=== PATIENT | male | born 1975 | race Caucasian/White ===

== ENCOUNTER 2017-03-13 14:36 | Inpatient (IN) | payer SELFPAY ==
[~2017-03-13] VITALS: Ht 188 cm; Wt 91.6 kg
[2017-03-13] VITALS (8 sets, daily range): BP systolic 109–178; BP diastolic 64–103
[2017-03-13] MEDS ORDERED: IV NORMAL SALINE 1000ML BAG 1,000 ML IV SCH (15:00)
[2017-03-13] MEDS ORDERED: IPRATRPIUM/ALBUTEROL 0.5/2.5MG 3 ML NEBU. NEB ONE ×3 (15:00→16:00)
[2017-03-13] MEDS ORDERED: 0.9 % SODIUM CHLORIDE 10 ML DISP.SYRIN. IV ONE (15:00)
[2017-03-13] MEDS ORDERED: methylPREDNISolone SOD SUCC PF 125 MG/2 ML VIAL. IV ONE (15:00)
[2017-03-13 15:04] LABS: BASO # 0.1 x10^3/uL (0.0-0.2); BASO % 1 % (0-3); EOS % 5 % (0-3); HEMATOCRIT 50.2 % (39.0-53.0); HEMOGLOBIN 17.3 g/dL (13.0-17.5); LYMPH # 2.6 x10^3/uL (1.0-4.8); LYMPH % 16 % (24-48); MEAN CORPUSCULAR HEMOGLOBIN 32 pg (25-35); MEAN CORPUSCULAR HGB CONC 35 g/dL (31-37); MEAN CORPUSCULAR VOLUME 92 fL (79-100); MONO % 7 % (0-9); NEUT % 71 % (31-73); PLATELET COUNT 268 x10^3/uL (140-400); RED BLOOD COUNT 5.45 x10^6/uL (4.30-5.70); RED CELL DISTRIBUTION WIDTH 12.7 % (11.5-14.5); WHITE BLOOD COUNT 15.8 x10^3/uL (4.0-11.0)
--- NOTE | 2017-03-13 15:05 | PHYS DOC ---
Past Medical History Past Medical History: Asthma Past Surgical History: Tonsillectomy Smoking: Cigarettes, Quit Less Than 1 Year Additional Information: STATES HE QUIT 2 WEEKS AGO Alcohol Use: Occasionally Drug Use: None Adult General Chief Complaint Chief Complaint: SHORTNESS OF BREATH HPI HPI Patient is a pleasant 41-year-old male with a history of asthma who presents with a three-day asthma attack that has not been responding to his nebulizers orders MDIs at home. He is a smoker quit 2 weeks ago who complains of progressive shortness of breath and wheezing despite his metered-dose down. He denies fevers, chills, productive cough. He denies chest pain but his feels that he cannot catch his breath. Patient denies recent trauma, travel outside the country, recent swelling or pain in his lower legs, denies rash, denies congestion or other problems. Patient has never been intubated. He's not had any recent ER visits and he denies any recent steroid exposure. Review of Systems Review of Systems Constitutional: Denies fever or chills [] Eyes: Denies change in visual acuity, redness, or eye pain [] HENT: Denies nasal congestion or sore throat [] Respiratory: He has had a significant cough with shortness of breath and wheezing. Cardiovascular: No additional information not addressed in HPI [] GI: Denies abdominal pain, nausea, vomiting, bloody stools or diarrhea [] : Denies dysuria or hematuria [] Musculoskeletal: Denies back pain or joint pain [] Integument: Denies rash or skin lesions [] Neurologic: Denies headache, focal weakness or sensory changes [] Endocrine: Denies polyuria or polydipsia [] Current Medications Current Medications Current Medications Medications (Trade) Dose Ordered Sig/Tim Start Time Stop Time Status Last Admin Dose Admin Albuterol/ Ipratropium (Duoneb) 3 ml 1X ONCE 03/13/17 16:00 03/13/17 16:01 DC 03/13/17 16:18 3 ML Magnesium Sulfate/ Dextrose 50 ml @ 25 mls/hr 1X ONCE 03/13/17 16:15 03/13/17 18:14 03/13/17 16:13 25 MLS/HR Methylprednisolone Sodium Succinate (SOLU-Medrol 125MG VIAL) 125 mg 1X ONCE 03/13/17 15:00 03/13/17 15:01 DC 03/13/17 15:05 125 MG Sodium Chloride 1,000 ml @ 1,000 mls/hr Q1H 03/13/17 15:00 03/13/17 15:59 DC 03/13/17 15:05 1,000 MLS/HR Sodium Chloride (Normal Saline Flush) 10 ml 1X ONCE 03/13/17 15:00 03/13/17 15:01 DC 03/13/17 16:13 10 ML Allergies Allergies Allergies Coded Allergies Type Severity Reaction Last Updated Verified codeine Allergy Intermediate 03/13/17 Yes Physical Exam Physical Exam Constitutional: Well developed, well nourished, patient is in somewhat distress he is diaphoretic he is retracting when he speaking in 6-8 word sentences. HENT: Normocephalic, atraumatic, bilateral external ears normal, oropharynx moist, no oral exudates, nose normal. [] Eyes: PERRLA, EOMI, conjunctiva normal, no discharge. [] Neck: Normal range of motion, no tenderness, supple, no stridor. [] Cardiovascular: He is tachycardic with a 96% on room on 2 L nasal cannula was] Lungs & Thorax: He denies significant wheezing in all lung bean significant intercostal retractions. He has got some prolonged exhalation as well. Skin: Warm, dry, no erythema, no rash. [] Back: No tenderness, no CVA tenderness. [] Extremities: No tenderness, no cyanosis, no clubbing, ROM intact, no edema. [] Neurologic: Alert and oriented X 3, normal motor function, normal sensory function, no focal deficits noted. [] Psychologic: Affect normal, judgement normal, mood normal. [] Current Patient Data Vital Signs Vital Signs Date Time Temp Pulse Resp B/P (MAP) Pulse Ox O2 Delivery O2 Flow Rate FiO2 03/13/17 16:19 95 Nasal Cannula 4.0 03/13/17 14:36 98.7 105 28 178/125 (142) 98.7 Lab Values Laboratory Tests Test 03/13/17 14:42 White Blood Count 15.8 x10^3/uL (4.0-11.0) H Red Blood Count 5.45 x10^6/uL (4.30-5.70) Hemoglobin 17.3 g/dL (13.0-17.5) Hematocrit 50.2 % (39.0-53.0) Mean Corpuscular Volume 92 fL (79-100) Mean Corpuscular Hemoglobin 32 pg (25-35) Mean Corpuscular Hemoglobin Concent 35 g/dL (31-37) Red Cell Distribution Width 12.7 % (11.5-14.5) Platelet Count 268 x10^3/uL (140-400) Neutrophils (%) (Auto) 71 % (31-73) Lymphocytes (%) (Auto) 16 % (24-48) L Monocytes (%) (Auto) 7 % (0-9) Eosinophils (%) (Auto) 5 % (0-3) H Basophils (%) (Auto) 1 % (0-3) Neutrophils # (Auto) 11.2 x10^3uL (1.8-7.7) H Lymphocytes # (Auto) 2.6 x10^3/uL (1.0-4.8) Monocytes # (Auto) 1.1 x10^3/uL (0.0-1.1) Eosinophils # (Auto) 0.8 x10^3/uL (0.0-0.7) H Basophils # (Auto) 0.1 x10^3/uL (0.0-0.2) Sodium Level 141 mmol/L (136-145) Potassium Level 4.4 mmol/L (3.5-5.1) Chloride Level 102 mmol/L (98-107) Carbon Dioxide Level 25 mmol/L (21-32) Anion Gap 14 (6-14) Blood Urea Nitrogen 10 mg/dL (8-26) Creatinine 0.9 mg/dL (0.7-1.3) Estimated GFR (Cockcroft-Gault) 92.1 BUN/Creatinine Ratio 11 (6-20) Glucose Level 125 mg/dL (70-99) H Calcium Level 10.3 mg/dL (8.5-10.1) H Total Bilirubin 0.7 mg/dL (0.2-1.0) Aspartate Amino Transferase (AST) 25 U/L (15-37) Alanine Aminotransferase (ALT) 55 U/L (16-63) Alkaline Phosphatase 74 U/L (46-116) Creatine Kinase 144 U/L (39-308) Creatine Kinase MB (Mass) 1.8 ng/mL (0.0-3.6) Creatine Kinase MB Relative Index 1.3 % (0-4) Troponin I Quantitative < 0.017 ng/mL (0.000-0.055) VZ-Fhq-W-Type Natriuretic Peptide 17 pg/mL (0-124) Total Protein 8.3 g/dL (6.4-8.2) H Albumin 4.8 g/dL (3.4-5.0) Albumin/Globulin Ratio 1.4 (1.0-1.7) Laboratory Tests 03/13/17 14:42 Laboratory Tests 03/13/17 14:42 EKG EKG [] Radiology/Procedures Radiology/Procedures [] [facility] [address] [place], [place] [id number] IMAGING REPORT Signed PATIENT: ELEUTERIO GALAVIZ ACCOUNT: [id number] : 1975 LOCATION: ER AGE: 41 SEX: M EXAM STATUS: PRE ER ORD. PHYSICIAN: RADHA WHITE MD REASON: sob PROCEDURE: PORTABLE CHEST 1V INDICATION: sob COMPARISON: None. FINDINGS: Single view of chest obtained. 7 mm probable calcified nodule in the left midlung. No definite focal airspace consolidation or edema. Cardiac silhouette is not enlarged. IMPRESSION: No definite focal airspace consolidation. Probable calcified nodule in the left lung. If the patient has risk factors for malignancy it may be helpful to obtain a follow-up chest CT on a nonemergent basis to ensure that there is not any noncalcified more worrisome solid component. DICTATED and SIGNED BY: SUBHA YATES MD DATE: 03/13/17 1501 CC: RADHA WHITE MD ~ Course & Med Decision Making Course & Med Decision Making Pertinent Labs and Imaging studies reviewed. (See chart for details) patient noted to be working and extreme amount of stress given a neb treatment in route by EMS that he states made him feel better. During the history is obvious he was in some respiratory distress given the fact he was only speaking in 6-8 word sentences. There are obvious retractions and wheezes in all his lung bean. Patient was immediately prescribed 3 more continuous DuoNeb's Solu- Medrol and oxygen. Optimize his oxygenation and slow to open up his lungs. Chest x-ray will be completed as well as EKG IV fluids will be given and a base and some last be completed. Time is now 3:03 PM patient's still wheezing with prolonged exhalation. Has had 2 neb treatments at this time Time is now 3:45 PM patient has had 3 duo nebs, Solu-Medrol and is still oxygen dependent and wheezing diffusely in all lung bean. The retractions have decreased significantly and his work of breathing and diaphoresis of stopped. I was now 4: 10 PM patient will be admitted to the hospital for continued asthma exacerbation. The maximize therapy and obtaining the patient 2 g of mag as well IV slow push over 15 minutes. Patient be admitted to the unit for continued observation under very close scrutiny. [employer] Consultant note: Internal medicine. [employer] Consultant called at of the service 4:10 PM Consult called back at 4:10 pm Discussed the case I presented and they agreed with admission. Time of acceptance 4:10 PM [] I spent approximately 45-50 minutes working and engaged directly in the patient care providing critical care evaluation this includes but not limited to time spent engaged in work directly related to the individual patients care. I spent time at the bedside, reviewing test results, discussing the case with staff, documenting the medical record and time spent with EMS discussing specific treatment issues when the patient presented and during his evaluation. Adelina Disclaimer Adelina Disclaimer This electronic medical record was generated, in whole or in part, using a voice recognition dictation system. Departure Departure Impression: Primary Impression: Asthma exacerbation Disposition: ADMITTED INPATIENT Admitting Physician: Helene Butler Condition: GUARDED RADHA WHITE MD Mar 13, 2017 15:05
--- NOTE | 2017-03-13 15:09 | RAD ---
INDICATION: sob COMPARISON: None. FINDINGS: Single view of chest obtained. 7 mm probable calcified nodule in the left midlung. No definite focal airspace consolidation or edema. Cardiac silhouette is not enlarged. IMPRESSION: No definite focal airspace consolidation. Probable calcified nodule in the left lung. If the patient has risk factors for malignancy it may be helpful to obtain a follow-up chest CT on a nonemergent basis to ensure that there is not any noncalcified more worrisome solid component.
[2017-03-13 15:15] LABS: CALCIUM 10.3 mg/dL (8.5-10.1); CREATININE 0.9 mg/dL (0.7-1.3); GFR 92.1; POTASSIUM 4.4 mmol/L (3.5-5.1)
[2017-03-13 15:21] LABS: ALBUMIN 4.8 g/dL (3.4-5.0); ALBUMIN/GLOBULIN RATIO 1.4 (1.0-1.7); TOTAL BILIRUBIN 0.7 mg/dL (0.2-1.0); TOTAL PROTEIN 8.3 g/dL (6.4-8.2)
[2017-03-13 15:29] LABS: CKMB MASS 1.8 ng/mL (0.0-3.6)
[2017-03-13] MEDS ORDERED: MAGNESIUM SULFATE 2GM 50 ML IV ONE (16:15)
--- NOTE | 2017-03-13 16:19 | EKG ---
[facility] [address] [place] [address] Test Date: 2017-03-13 Test Time: 14:43:06 Pat Name: ELEUTERIO GALAVIZ Department: Room: Gender: Retail Merchandising Manager: : 1975 Requested By: RADHA WHITE Order Number: [id number] Reading MD: Measurements Intervals [place] Rate: 113 P: 90 MD: 118 QRS: 68 QRSD: 94 T: 24 QT: 304 QTc: 422 Interpretive Statements SINUS TACHYCARDIA OTHERWISE NORMAL ECG RI6.01 No previous ECG available for comparison
[2017-03-13] MEDS ORDERED: DOCUSATE SODIUM 100 MG CAPSULE. PO PRN (17:30)
[2017-03-13] MEDS ORDERED: ACETAMINOPHEN 325 MG TABLET. PO PRN (17:30)
[2017-03-13] MEDS ORDERED: MORPHINE SULFATE 2 MG/ML DISP.SYRIN. IV PRN ×2 (17:30)
[2017-03-13] MEDS ORDERED: ALBUTEROL SULFATE 2.5 MG/3 ML NEBU. NEB PRN (17:30)
[2017-03-13] MEDS ORDERED: hydrALAZINE 20 MG/ML VIAL. IVP PRN (17:30)
[2017-03-13] MEDS ORDERED: ONDANSETRON PF 4 MG/2 ML VIAL. IV PRN (17:30)
[2017-03-13] MEDS ORDERED: traMADol 50 MG TABLET PO PRN ×2 (17:30)
--- NOTE | 2017-03-13 17:37 | PDOC1 ---
History and Physical Date of Admission Date of Admission 03/13/17 Identification/Chief Complaint Chief Complaint sob Problems: Source Source: Chart review, Patient History of Present Illness History of Present Illness HPI HPI Patient is a pleasant 41-year-old male with a history of self diagnosed asthma on albuterol many times a week, comes for sob. He was a heavy smoker, 1-1.5 PPD, started to have non productive cough since 02/26 and since then quit smoking. Denies fever, chills, chest pain. He has NO pcp, NEVER really diagnosed with asthma or copd, but felt so and takes albuterol himself. He feels sob worse for the past 3 days. he dasats in ER to 88% on RA, now on NC 4L, got some nebs and steroid in ER, still sob and severe wheezing. Patient denies recent trauma, travel outside the country, recent swelling or pain in his lower legs, denies rash, denies congestion or other problems. Patient has never been intubated. He's not had any recent ER visits and he denies any recent steroid exposure. Past Medical History Past Medical History none Past Surgical History Past Surgical History: Tonsillectomy Family History Family History: Hypertension Social History Smoke: Quit ALCOHOL: social Drugs: None Current Problem List Problem List Problems Medical Problems: (1) Asthma exacerbation Status: Acute Current Medications Current Medications Current Medications Medications (Trade) Dose Ordered Sig/Tim Start Time Stop Time Status Last Admin Dose Admin Acetaminophen (Tylenol) 650 mg PRN Q6HRS PRN 03/13/17 17:30 Albuterol Sulfate (Ventolin Neb Soln) 2.5 mg PRN Q2HR PRN 03/13/17 17:30 Albuterol/ Ipratropium (Duoneb) 3 ml RTQID 03/13/17 20:00 Docusate Sodium (Colace) 100 mg PRN DAILY PRN 03/13/17 17:30 Guaifenesin (Mucinex) 600 mg BID 03/13/17 21:00 Hydralazine HCl (Apresoline) 10 mg PRN Q4HRS PRN 03/13/17 17:30 Magnesium Sulfate/ Dextrose 50 ml @ 25 mls/hr 1X ONCE 03/13/17 16:15 03/13/17 18:14 03/13/17 16:13 25 MLS/HR Methylprednisolone Sodium Succinate (SOLU-Medrol 125MG VIAL) 125 mg 1X ONCE 03/13/17 15:00 03/13/17 15:01 DC 03/13/17 15:05 125 MG Morphine Sulfate 2 mg PRN Q2HR PRN 03/13/17 17:30 Ondansetron HCl (Zofran) 4 mg PRN Q6HRS PRN 03/13/17 17:30 Sodium Chloride 1,000 ml @ 1,000 mls/hr Q1H 03/13/17 15:00 03/13/17 15:59 DC 03/13/17 15:05 1,000 MLS/HR Sodium Chloride (Normal Saline Flush) 10 ml 1X ONCE 03/13/17 15:00 03/13/17 15:01 DC 03/13/17 16:13 10 ML Tramadol HCl (Ultram) 50 mg PRN Q6HRS PRN 03/13/17 17:30 Allergies Allergies Allergies Coded Allergies Type Severity Reaction Last Updated Verified codeine Allergy Intermediate 03/13/17 Yes ROS Review of System CONSTITUTIONAL: No fever or chills EYES: No recent changes SKIN: No rash or itching CARDIOVASCULAR: No chest pain, syncope, palpitations, or edema RESPIRATORY: No SOB or cough GASTROINTESTINAL: No nausea, vomiting or abdominal pain NEUROLOGICAL: No headaches or weakness ENDOCRINE: No cold or heat intolerance GENITOURINARY: No urgency or frequency of urination MUSCULOSKELETAL: No back pain or joint pain LYMPHATICS: No enlarged lymph nodes PSYCHIATRIC: No anxiety or depression Physical Exam Physical Exam GEN.: No apparent distress. Alert and oriented. HEENT: Head is normocephalic, atraumatic NECK: Supple. LUNGS: bl severe wheezing HEART: RRR, S1, S2 present. Peripheral pulses intact ABDOMEN: Soft, nontender. Positive bowel sounds. EXTREMITIES: Without any cyanosis. NEUROLOGIC: Normal speech, normal tone PSYCHIATRIC: Normal affect, normal mood. SKIN: No ulcerations Vitals Vitals Vital Signs Date Time Temp Pulse Resp B/P (MAP) Pulse Ox O2 Delivery O2 Flow Rate FiO2 03/13/17 16:19 95 Nasal Cannula 4.0 03/13/17 14:36 98.7 105 28 178/125 (142) 98.7 Labs Labs Laboratory Tests Test 03/13/17 14:42 White Blood Count 15.8 x10^3/uL (4.0-11.0) Red Blood Count 5.45 x10^6/uL (4.30-5.70) Hemoglobin 17.3 g/dL (13.0-17.5) Hematocrit 50.2 % (39.0-53.0) Mean Corpuscular Volume 92 fL (79-100) Mean Corpuscular Hemoglobin 32 pg (25-35) Mean Corpuscular Hemoglobin Concent 35 g/dL (31-37) Red Cell Distribution Width 12.7 % (11.5-14.5) Platelet Count 268 x10^3/uL (140-400) Neutrophils (%) (Auto) 71 % (31-73) Lymphocytes (%) (Auto) 16 % (24-48) Monocytes (%) (Auto) 7 % (0-9) Eosinophils (%) (Auto) 5 % (0-3) Basophils (%) (Auto) 1 % (0-3) Neutrophils # (Auto) 11.2 x10^3uL (1.8-7.7) Lymphocytes # (Auto) 2.6 x10^3/uL (1.0-4.8) Monocytes # (Auto) 1.1 x10^3/uL (0.0-1.1) Eosinophils # (Auto) 0.8 x10^3/uL (0.0-0.7) Basophils # (Auto) 0.1 x10^3/uL (0.0-0.2) Sodium Level 141 mmol/L (136-145) Potassium Level 4.4 mmol/L (3.5-5.1) Chloride Level 102 mmol/L (98-107) Carbon Dioxide Level 25 mmol/L (21-32) Anion Gap 14 (6-14) Blood Urea Nitrogen 10 mg/dL (8-26) Creatinine 0.9 mg/dL (0.7-1.3) Estimated GFR (Cockcroft-Gault) 92.1 BUN/Creatinine Ratio 11 (6-20) Glucose Level 125 mg/dL (70-99) Calcium Level 10.3 mg/dL (8.5-10.1) Total Bilirubin 0.7 mg/dL (0.2-1.0) Aspartate Amino Transf (AST/SGOT) 25 U/L (15-37) Alanine Aminotransferase (ALT/SGPT) 55 U/L (16-63) Alkaline Phosphatase 74 U/L (46-116) Creatine Kinase 144 U/L (39-308) Creatine Kinase MB (Mass) 1.8 ng/mL (0.0-3.6) Creatine Kinase MB Relative Index 1.3 % (0-4) Troponin I Quantitative < 0.017 ng/mL (0.000-0.055) WM-Gtq-N-Type Natriuretic Peptide 17 pg/mL (0-124) Total Protein 8.3 g/dL (6.4-8.2) Albumin 4.8 g/dL (3.4-5.0) Albumin/Globulin Ratio 1.4 (1.0-1.7) Laboratory Tests Test 03/13/17 14:42 White Blood Count 15.8 x10^3/uL (4.0-11.0) Red Blood Count 5.45 x10^6/uL (4.30-5.70) Hemoglobin 17.3 g/dL (13.0-17.5) Hematocrit 50.2 % (39.0-53.0) Mean Corpuscular Volume 92 fL (79-100) Mean Corpuscular Hemoglobin 32 pg (25-35) Mean Corpuscular Hemoglobin Concent 35 g/dL (31-37) Red Cell Distribution Width 12.7 % (11.5-14.5) Platelet Count 268 x10^3/uL (140-400) Neutrophils (%) (Auto) 71 % (31-73) Lymphocytes (%) (Auto) 16 % (24-48) Monocytes (%) (Auto) 7 % (0-9) Eosinophils (%) (Auto) 5 % (0-3) Basophils (%) (Auto) 1 % (0-3) Neutrophils # (Auto) 11.2 x10^3uL (1.8-7.7) Lymphocytes # (Auto) 2.6 x10^3/uL (1.0-4.8) Monocytes # (Auto) 1.1 x10^3/uL (0.0-1.1) Eosinophils # (Auto) 0.8 x10^3/uL (0.0-0.7) Basophils # (Auto) 0.1 x10^3/uL (0.0-0.2) Sodium Level 141 mmol/L (136-145) Potassium Level 4.4 mmol/L (3.5-5.1) Chloride Level 102 mmol/L (98-107) Carbon Dioxide Level 25 mmol/L (21-32) Anion Gap 14 (6-14) Blood Urea Nitrogen 10 mg/dL (8-26) Creatinine 0.9 mg/dL (0.7-1.3) Estimated GFR (Cockcroft-Gault) 92.1 BUN/Creatinine Ratio 11 (6-20) Glucose Level 125 mg/dL (70-99) Calcium Level 10.3 mg/dL (8.5-10.1) Total Bilirubin 0.7 mg/dL (0.2-1.0) Aspartate Amino Transf (AST/SGOT) 25 U/L (15-37) Alanine Aminotransferase (ALT/SGPT) 55 U/L (16-63) Alkaline Phosphatase 74 U/L (46-116) Creatine Kinase 144 U/L (39-308) Creatine Kinase MB (Mass) 1.8 ng/mL (0.0-3.6) Creatine Kinase MB Relative Index 1.3 % (0-4) Troponin I Quantitative < 0.017 ng/mL (0.000-0.055) CF-Nqk-T-Type Natriuretic Peptide 17 pg/mL (0-124) Total Protein 8.3 g/dL (6.4-8.2) Albumin 4.8 g/dL (3.4-5.0) Albumin/Globulin Ratio 1.4 (1.0-1.7) VTE Prophylaxis Ordered VTE Prophylaxis Devices: Yes VTE Pharmacological Prophylaxi: Yes Assessment/Plan Assessment/Plan acute resp failure asthma or COPD exacerbation bronchitis previous smoker, heavy, just quit [id number] plan: pulm consult cough meds doxy duoneb albuterol prn dvt, gi ppx check ABG stat told pt if feels tired , must let us know, hope no intubation needed. ALEKSANDR CANELA MD Mar 13, 2017 17:37
[2017-03-13 17:42] LABS: HCO3 ABG 22 mmol/L (21-28); PCO2 ABG 40 mmHg (35-46); PH ABG 7.35 (7.35-7.45); PO2 ABG 69 mmHg (75-108); SAT O2 ABG 93 % (92-99)
[2017-03-13] MEDS: DOXYCYCLINE HYCLATE 100 MG TABLET PO SCH (18:26)
[2017-03-13] MEDS ORDERED: ALBU1.25 NEB (18:51)
[2017-03-13] MEDS ORDERED: VENTOLIN HFA18 GM INH (18:51)
[2017-03-13] MEDS ORDERED: fentaNYL PF VIAL 100 MCG/2 ML VIAL IV PRN (19:45)
[2017-03-13 20:09] LABS: BILIRUBIN,URINE NEGATIVE (NEG); GLUCOSE,URINE NEGATIVE (NEG); NITRITE,URINE NEGATIVE (NEG); PH,URINE 5.5; PROTEIN,URINE NEGATIVE (NEG-TRACE); UROBILINOGEN,URINE 0.2 mg/dL (0.2 mg/dL)
[2017-03-13 20:20] LABS: BACTERIA,URINE FEW /HPF (0-FEW); RBC,URINE 0 /HPF (0-2); SQUAMOUS EPITHELIAL CELL,UR OCC /LPF; WBC,URINE OCC /HPF (0-4)
[2017-03-13] MEDS: IPRATRPIUM/ALBUTEROL 0.5/2.5MG 3 ML NEBU. NEB SCH (20:21)
[2017-03-13] MEDS ORDERED: FAMOTIDINE 20 MG TABLET. PO SCH (21:00)
[2017-03-13] MEDS ORDERED: ENOXAPARIN 40 MG/0.4 ML SYRINGE. SQ SCH (21:00)
[2017-03-13] MEDS: methylPREDNISolone SOD SUCC PF 40 MG/ML VIAL. IV SCH (21:12)
[2017-03-13] MEDS ORDERED: ALPRAZolam 0.25 MG TABLET PO ONE (22:30)
--- NOTE | 2017-03-14 03:40 | ACF ---
Admission Forms Criteria ASTHMA Clinical Indications for Admission to Inpatient Care (Place 'X' for any and all applicable criteria): Admission is indicated for ANY ONE of the following (1)(2)(3)(4)(5): [ ]I. Absent or markedly diminished breath sounds (silent chest) [ ]II. Oxygen saturation < 92% [ ]III. PaCO2 = / > 42 mm Hg (5.6 kPa) [ ]IV. Peak expiratory flow rate < 40% of predicted or personal best after treatment. [ ]V. Peak expiratory flow rate < 33% of predicted or personal before after treatment [ ]. Change in mental status [ ]VII. Ventilatory support required [ ]VIII. PaO2 < 60 mm Hg (8.0 kPa) [ ]IX. Cyanosis [ ]X. Cardiac dysrhythmia (e.g., bradycardia) [ ]XI. Hemodynamic instability [ ]XII. Radiographic evidence of complication requiring inpatient treatment (e.g., pneumonia, pneumothorax) [X]XIII. Inpatient admission required rather than observation care (also use Asthma: Observation Care guideline as appropriate) because of ANY ONE of the following: [ ]a) Respiratory finding that is severe or persistent (eg, dyspnea, tachypnea, accessory muscle use) [ ]b) Airflow measurements less than 60% of predicted or personal best that persist (e.g., over 24 hours) or worsen despite treatments [X]c) Supplemental oxygen or respiratory treatments for over 24 hours that are performable only in acute inpatient setting [ ]d) Other condition, treatment or monitoring requiring inpatient admission. Extended stay beyond goal length of stay may be needed for (26)(27)(28): [ ]a) Severe respiratory failure (23) (29) (30) [ ]b) Secondary causes and complications (25) [ ]c) Status asthmaticus [ ]d) Chronic obstructive asthma [ ]e) Older patients (29) [ ]f) Slow resolution [ ]g) Clinically significant exacerbation of comorbidities (eg, jag. heart failure, atrial fibrillation) The original [employer] content created by [employer] has been revised. The portions of the content which have been revised are identified through the use of italic text or in bold, and [employer] includes the [facility] [employer] has neither reviewed nor approved the modified material. All other unmodified content is copyright [employer] includes the [facility] Please see references footnoted in the original [facility] edition 2016 Admission Criteria Met?: Yes ROBERTO GRACIA Mar 14, 2017 03:40
[2017-03-14 03:45] VITALS: BP 105/58
[2017-03-14 05:44] LABS: BASO % 0 % (0-3); EOS % 0 % (0-3); HEMATOCRIT 48.8 % (39.0-53.0); HEMOGLOBIN 16.4 g/dL (13.0-17.5); LYMPH # 0.9 x10^3/uL (1.0-4.8); LYMPH % 8 % (24-48); MEAN CORPUSCULAR HEMOGLOBIN 31 pg (25-35); MEAN CORPUSCULAR HGB CONC 34 g/dL (31-37); MEAN CORPUSCULAR VOLUME 93 fL (79-100); MONO % 2 % (0-9); NEUT % 90 % (31-73); PLATELET COUNT 234 x10^3/uL (140-400); RED BLOOD COUNT 5.26 x10^6/uL (4.30-5.70); RED CELL DISTRIBUTION WIDTH 12.9 % (11.5-14.5); WHITE BLOOD COUNT 11.1 x10^3/uL (4.0-11.0)
[2017-03-14 06:02] LABS: CREATININE 0.8 mg/dL (0.7-1.3); GFR 105.5; POTASSIUM 3.8 mmol/L (3.5-5.1)
[2017-03-14 06:59] LABS: PLT ESTIMATE ADEQUATE (ADEQUATE)
[2017-03-14 08:00] VITALS: BP 140/80
[2017-03-14] MEDS: IPRATRPIUM/ALBUTEROL 0.5/2.5MG 3 ML NEBU. NEB SCH ×3 (08:16→18:01)
[2017-03-14] MEDS: DOXYCYCLINE HYCLATE 100 MG TABLET PO SCH (10:10)
[2017-03-14] MEDS: methylPREDNISolone SOD SUCC PF 40 MG/ML VIAL. IV SCH ×2 (10:11→15:19)
[2017-03-14 11:21] VITALS: BP 157/83
--- NOTE | 2017-03-14 13:09 | PDOC ---
PROGRESS NOTES Chief Complaint Chief Complaint Chief complaint: Shortness of breath Assessment and plan Acute respiratory failure hypoxic present on admission Possible reactive airway disease, questionable asthma ,never been diagnosed officially Possible bronchitis Former smoker quit smoking 2 weeks ago Plan Continue current bronchodilators, continue IV Solu-Medrol Continue doxycycline Smoking cessation addressed patient is encouraged Labs reviewed No old records available Pulmonology consultation pending Need outpatient the follow-up with the pulmonology. Supportive care Discharge plan based on patient's clinical improvement. History of Present Illness History of Present Illness No fever, no chills, no chest pain, and no breathing difficulties, Patient is seen in critical care unit Feeling better Vitals Vitals Vital Signs Date Time Temp Pulse Resp B/P (MAP) Pulse Ox O2 Delivery O2 Flow Rate FiO2 03/14/17 11:43 96 Nasal Cannula 2.0 03/14/17 11:21 97.9 101 18 157/83 (107) 97.9 Physical Exam General: Alert, Oriented X3 Heart: Normal S1, Normal S2 Lungs: Wheezing Abdomen: Normal bowel sounds Extremities: No clubbing Skin: No rashes Labs LABS Laboratory Tests Test 03/13/17 14:42 03/13/17 17:19 03/13/17 19:24 03/14/17 05:20 White Blood Count 15.8 x10^3/uL (4.0-11.0) 11.1 x10^3/uL (4.0-11.0) Red Blood Count 5.45 x10^6/uL (4.30-5.70) 5.26 x10^6/uL (4.30-5.70) Hemoglobin 17.3 g/dL (13.0-17.5) 16.4 g/dL (13.0-17.5) Hematocrit 50.2 % (39.0-53.0) 48.8 % (39.0-53.0) Mean Corpuscular Volume 92 fL (79-100) 93 fL (79-100) Mean Corpuscular Hemoglobin 32 pg (25-35) 31 pg (25-35) Mean Corpuscular Hemoglobin Concent 35 g/dL (31-37) 34 g/dL (31-37) Red Cell Distribution Width 12.7 % (11.5-14.5) 12.9 % (11.5-14.5) Platelet Count 268 x10^3/uL (140-400) 234 x10^3/uL (140-400) Neutrophils (%) (Auto) 71 % (31-73) 90 % (31-73) Lymphocytes (%) (Auto) 16 % (24-48) 8 % (24-48) Monocytes (%) (Auto) 7 % (0-9) 2 % (0-9) Eosinophils (%) (Auto) 5 % (0-3) 0 % (0-3) Basophils (%) (Auto) 1 % (0-3) 0 % (0-3) Neutrophils # (Auto) 11.2 x10^3uL (1.8-7.7) 9.9 x10^3uL (1.8-7.7) Lymphocytes # (Auto) 2.6 x10^3/uL (1.0-4.8) 0.9 x10^3/uL (1.0-4.8) Monocytes # (Auto) 1.1 x10^3/uL (0.0-1.1) 0.2 x10^3/uL (0.0-1.1) Eosinophils # (Auto) 0.8 x10^3/uL (0.0-0.7) 0.0 x10^3/uL (0.0-0.7) Basophils # (Auto) 0.1 x10^3/uL (0.0-0.2) 0.0 x10^3/uL (0.0-0.2) Sodium Level 141 mmol/L (136-145) 139 mmol/L (136-145) Potassium Level 4.4 mmol/L (3.5-5.1) 3.8 mmol/L (3.5-5.1) Chloride Level 102 mmol/L (98-107) 103 mmol/L (98-107) Carbon Dioxide Level 25 mmol/L (21-32) 23 mmol/L (21-32) Anion Gap 14 (6-14) 13 (6-14) Blood Urea Nitrogen 10 mg/dL (8-26) 10 mg/dL (8-26) Creatinine 0.9 mg/dL (0.7-1.3) 0.8 mg/dL (0.7-1.3) Estimated GFR (Cockcroft-Gault) 92.1 105.5 BUN/Creatinine Ratio 11 (6-20) Glucose Level 125 mg/dL (70-99) 147 mg/dL (70-99) Calcium Level 10.3 mg/dL (8.5-10.1) 10.0 mg/dL (8.5-10.1) Total Bilirubin 0.7 mg/dL (0.2-1.0) Aspartate Amino Transf (AST/SGOT) 25 U/L (15-37) Alanine Aminotransferase (ALT/SGPT) 55 U/L (16-63) Alkaline Phosphatase 74 U/L (46-116) Creatine Kinase 144 U/L (39-308) Creatine Kinase MB (Mass) 1.8 ng/mL (0.0-3.6) Creatine Kinase MB Relative Index 1.3 % (0-4) Troponin I Quantitative < 0.017 ng/mL (0.000-0.055) AG-Ipb-D-Type Natriuretic Peptide 17 pg/mL (0-124) Total Protein 8.3 g/dL (6.4-8.2) Albumin 4.8 g/dL (3.4-5.0) Albumin/Globulin Ratio 1.4 (1.0-1.7) O2 Saturation 93 % (92-99) Arterial Blood pH 7.35 (7.35-7.45) Arterial Blood pCO2 at Patient Temp 40 mmHg (35-46) Arterial Blood pO2 at Patient Temp 69 mmHg (75-108) Arterial Blood HCO3 22 mmol/L (21-28) Arterial Blood Base Excess -4 mmol/L (-3-3) FiO2 40.0 Urine Collection Type Void Urine Color Yellow Urine Clarity Clear Urine pH 5.5 Urine Specific [place] 1.010 Urine Protein Negative mg/dL (NEG-TRACE) Urine Glucose (UA) Negative mg/dL (NEG) Urine Ketones (Stick) 15 mg/dL (NEG) Urine Blood Trace (NEG) Urine Nitrite Negative (NEG) Urine Bilirubin Negative (NEG) Urine Urobilinogen Dipstick 0.2 mg/dL (0.2 mg/dL) Urine Leukocyte Esterase Negative (NEG) Urine RBC 0 /HPF (0-2) Urine WBC Occ /HPF (0-4) Urine Squamous Epithelial Cells Occ /LPF Urine Bacteria Few /HPF (0-FEW) Urine Mucus Mod /LPF Segmented Neutrophils % 92 % (35-66) Band Neutrophils % 4 % (0-9) Lymphocytes % 3 % (24-48) Monocytes % 1 % (0-10) Platelet Estimate Adequate (ADEQUATE) Assessment and Plan Assessmemt and Plan Problems Medical Problems: (1) Asthma exacerbation Status: Acute Problems: Comment Review of Relevant I have reviewed the following items rodrigo (where applicable) has been applied. Labs Laboratory Tests Test 03/13/17 14:42 03/13/17 17:19 03/13/17 19:24 03/14/17 05:20 White Blood Count 15.8 x10^3/uL (4.0-11.0) 11.1 x10^3/uL (4.0-11.0) Red Blood Count 5.45 x10^6/uL (4.30-5.70) 5.26 x10^6/uL (4.30-5.70) Hemoglobin 17.3 g/dL (13.0-17.5) 16.4 g/dL (13.0-17.5) Hematocrit 50.2 % (39.0-53.0) 48.8 % (39.0-53.0) Mean Corpuscular Volume 92 fL (79-100) 93 fL (79-100) Mean Corpuscular Hemoglobin 32 pg (25-35) 31 pg (25-35) Mean Corpuscular Hemoglobin Concent 35 g/dL (31-37) 34 g/dL (31-37) Red Cell Distribution Width 12.7 % (11.5-14.5) 12.9 % (11.5-14.5) Platelet Count 268 x10^3/uL (140-400) 234 x10^3/uL (140-400) Neutrophils (%) (Auto) 71 % (31-73) 90 % (31-73) Lymphocytes (%) (Auto) 16 % (24-48) 8 % (24-48) Monocytes (%) (Auto) 7 % (0-9) 2 % (0-9) Eosinophils (%) (Auto) 5 % (0-3) 0 % (0-3) Basophils (%) (Auto) 1 % (0-3) 0 % (0-3) Neutrophils # (Auto) 11.2 x10^3uL (1.8-7.7) 9.9 x10^3uL (1.8-7.7) Lymphocytes # (Auto) 2.6 x10^3/uL (1.0-4.8) 0.9 x10^3/uL (1.0-4.8) Monocytes # (Auto) 1.1 x10^3/uL (0.0-1.1) 0.2 x10^3/uL (0.0-1.1) Eosinophils # (Auto) 0.8 x10^3/uL (0.0-0.7) 0.0 x10^3/uL (0.0-0.7) Basophils # (Auto) 0.1 x10^3/uL (0.0-0.2) 0.0 x10^3/uL (0.0-0.2) Sodium Level 141 mmol/L (136-145) 139 mmol/L (136-145) Potassium Level 4.4 mmol/L (3.5-5.1) 3.8 mmol/L (3.5-5.1) Chloride Level 102 mmol/L (98-107) 103 mmol/L (98-107) Carbon Dioxide Level 25 mmol/L (21-32) 23 mmol/L (21-32) Anion Gap 14 (6-14) 13 (6-14) Blood Urea Nitrogen 10 mg/dL (8-26) 10 mg/dL (8-26) Creatinine 0.9 mg/dL (0.7-1.3) 0.8 mg/dL (0.7-1.3) Estimated GFR (Cockcroft-Gault) 92.1 105.5 BUN/Creatinine Ratio 11 (6-20) Glucose Level 125 mg/dL (70-99) 147 mg/dL (70-99) Calcium Level 10.3 mg/dL (8.5-10.1) 10.0 mg/dL (8.5-10.1) Total Bilirubin 0.7 mg/dL (0.2-1.0) Aspartate Amino Transf (AST/SGOT) 25 U/L (15-37) Alanine Aminotransferase (ALT/SGPT) 55 U/L (16-63) Alkaline Phosphatase 74 U/L (46-116) Creatine Kinase 144 U/L (39-308) Creatine Kinase MB (Mass) 1.8 ng/mL (0.0-3.6) Creatine Kinase MB Relative Index 1.3 % (0-4) Troponin I Quantitative < 0.017 ng/mL (0.000-0.055) ZP-Ltl-Q-Type Natriuretic Peptide 17 pg/mL (0-124) Total Protein 8.3 g/dL (6.4-8.2) Albumin 4.8 g/dL (3.4-5.0) Albumin/Globulin Ratio 1.4 (1.0-1.7) O2 Saturation 93 % (92-99) Arterial Blood pH 7.35 (7.35-7.45) Arterial Blood pCO2 at Patient Temp 40 mmHg (35-46) Arterial Blood pO2 at Patient Temp 69 mmHg (75-108) Arterial Blood HCO3 22 mmol/L (21-28) Arterial Blood Base Excess -4 mmol/L (-3-3) FiO2 40.0 Urine Collection Type Void Urine Color Yellow Urine Clarity Clear Urine pH 5.5 Urine Specific [place] 1.010 Urine Protein Negative mg/dL (NEG-TRACE) Urine Glucose (UA) Negative mg/dL (NEG) Urine Ketones (Stick) 15 mg/dL (NEG) Urine Blood Trace (NEG) Urine Nitrite Negative (NEG) Urine Bilirubin Negative (NEG) Urine Urobilinogen Dipstick 0.2 mg/dL (0.2 mg/dL) Urine Leukocyte Esterase Negative (NEG) Urine RBC 0 /HPF (0-2) Urine WBC Occ /HPF (0-4) Urine Squamous Epithelial Cells Occ /LPF Urine Bacteria Few /HPF (0-FEW) Urine Mucus Mod /LPF Segmented Neutrophils % 92 % (35-66) Band Neutrophils % 4 % (0-9) Lymphocytes % 3 % (24-48) Monocytes % 1 % (0-10) Platelet Estimate Adequate (ADEQUATE) Laboratory Tests Test 03/13/17 14:42 03/13/17 17:19 03/13/17 19:24 03/14/17 05:20 White Blood Count 15.8 x10^3/uL (4.0-11.0) 11.1 x10^3/uL (4.0-11.0) Red Blood Count 5.45 x10^6/uL (4.30-5.70) 5.26 x10^6/uL (4.30-5.70) Hemoglobin 17.3 g/dL (13.0-17.5) 16.4 g/dL (13.0-17.5) Hematocrit 50.2 % (39.0-53.0) 48.8 % (39.0-53.0) Mean Corpuscular Volume 92 fL (79-100) 93 fL (79-100) Mean Corpuscular Hemoglobin 32 pg (25-35) 31 pg (25-35) Mean Corpuscular Hemoglobin Concent 35 g/dL (31-37) 34 g/dL (31-37) Red Cell Distribution Width 12.7 % (11.5-14.5) 12.9 % (11.5-14.5) Platelet Count 268 x10^3/uL (140-400) 234 x10^3/uL (140-400) Neutrophils (%) (Auto) 71 % (31-73) 90 % (31-73) Lymphocytes (%) (Auto) 16 % (24-48) 8 % (24-48) Monocytes (%) (Auto) 7 % (0-9) 2 % (0-9) Eosinophils (%) (Auto) 5 % (0-3) 0 % (0-3) Basophils (%) (Auto) 1 % (0-3) 0 % (0-3) Neutrophils # (Auto) 11.2 x10^3uL (1.8-7.7) 9.9 x10^3uL (1.8-7.7) Lymphocytes # (Auto) 2.6 x10^3/uL (1.0-4.8) 0.9 x10^3/uL (1.0-4.8) Monocytes # (Auto) 1.1 x10^3/uL (0.0-1.1) 0.2 x10^3/uL (0.0-1.1) Eosinophils # (Auto) 0.8 x10^3/uL (0.0-0.7) 0.0 x10^3/uL (0.0-0.7) Basophils # (Auto) 0.1 x10^3/uL (0.0-0.2) 0.0 x10^3/uL (0.0-0.2) Sodium Level 141 mmol/L (136-145) 139 mmol/L (136-145) Potassium Level 4.4 mmol/L (3.5-5.1) 3.8 mmol/L (3.5-5.1) Chloride Level 102 mmol/L (98-107) 103 mmol/L (98-107) Carbon Dioxide Level 25 mmol/L (21-32) 23 mmol/L (21-32) Anion Gap 14 (6-14) 13 (6-14) Blood Urea Nitrogen 10 mg/dL (8-26) 10 mg/dL (8-26) Creatinine 0.9 mg/dL (0.7-1.3) 0.8 mg/dL (0.7-1.3) Estimated GFR (Cockcroft-Gault) 92.1 105.5 BUN/Creatinine Ratio 11 (6-20) Glucose Level 125 mg/dL (70-99) 147 mg/dL (70-99) Calcium Level 10.3 mg/dL (8.5-10.1) 10.0 mg/dL (8.5-10.1) Total Bilirubin 0.7 mg/dL (0.2-1.0) Aspartate Amino Transf (AST/SGOT) 25 U/L (15-37) Alanine Aminotransferase (ALT/SGPT) 55 U/L (16-63) Alkaline Phosphatase 74 U/L (46-116) Creatine Kinase 144 U/L (39-308) Creatine Kinase MB (Mass) 1.8 ng/mL (0.0-3.6) Creatine Kinase MB Relative Index 1.3 % (0-4) Troponin I Quantitative < 0.017 ng/mL (0.000-0.055) HT-Xnv-L-Type Natriuretic Peptide 17 pg/mL (0-124) Total Protein 8.3 g/dL (6.4-8.2) Albumin 4.8 g/dL (3.4-5.0) Albumin/Globulin Ratio 1.4 (1.0-1.7) O2 Saturation 93 % (92-99) Arterial Blood pH 7.35 (7.35-7.45) Arterial Blood pCO2 at Patient Temp 40 mmHg (35-46) Arterial Blood pO2 at Patient Temp 69 mmHg (75-108) Arterial Blood HCO3 22 mmol/L (21-28) Arterial Blood Base Excess -4 mmol/L (-3-3) FiO2 40.0 Urine Collection Type Void Urine Color Yellow Urine Clarity Clear Urine pH 5.5 Urine Specific [place] 1.010 Urine Protein Negative mg/dL (NEG-TRACE) Urine Glucose (UA) Negative mg/dL (NEG) Urine Ketones (Stick) 15 mg/dL (NEG) Urine Blood Trace (NEG) Urine Nitrite Negative (NEG) Urine Bilirubin Negative (NEG) Urine Urobilinogen Dipstick 0.2 mg/dL (0.2 mg/dL) Urine Leukocyte Esterase Negative (NEG) Urine RBC 0 /HPF (0-2) Urine WBC Occ /HPF (0-4) Urine Squamous Epithelial Cells Occ /LPF Urine Bacteria Few /HPF (0-FEW) Urine Mucus Mod /LPF Segmented Neutrophils % 92 % (35-66) Band Neutrophils % 4 % (0-9) Lymphocytes % 3 % (24-48) Monocytes % 1 % (0-10) Platelet Estimate Adequate (ADEQUATE) Medications Current Medications Sodium Chloride (Normal Saline Flush) 10 ml 1X ONCE IV Last administered on 16:13; Start 03/13/17 at 15:00; Stop 03/13/17 at 15:01; Status DC Sodium Chloride 1,000 ml @ 1,000 mls/hr Q1H IV Last administered on 03/13/17 15:05; Start 03/13/17 at 15:00; Stop 03/13/17 at 15:59; Status DC Albuterol/ Ipratropium (Duoneb) 3 ml 1X ONCE NEB Last administered on 15:01; Start 03/13/17 at 15:00; Stop 03/13/17 at 15:01; Status DC Methylprednisolone Sodium Succinate (SOLU-Medrol 125MG VIAL) 125 mg 1X ONCE IV Last administered on 03/13/17 15:05; Start 03/13/17 at 15:00; Stop 03/13/17 at 15:01; Status DC Albuterol/ Ipratropium (Duoneb) 3 ml 1X ONCE NEB Last administered on 16:13; Start 03/13/17 at 16:00; Stop 03/13/17 at 16:01; Status DC Albuterol/ Ipratropium (Duoneb) 3 ml 1X ONCE NEB Last administered on 16:18; Start 03/13/17 at 16:00; Stop 03/13/17 at 16:01; Status DC Magnesium Sulfate/ Dextrose 50 ml @ 25 mls/hr 1X ONCE IV Last administered on 03/13/17 16:13; Start 03/13/17 at 16:15; Stop 03/13/17 at 18:14; Status DC Acetaminophen (Tylenol) 650 mg PRN Q6HRS PRN PO FEVER; Start 03/13/17 at 17:30 Ondansetron HCl (Zofran) 4 mg PRN Q6HRS PRN IV NAUSEA/VOMITING; Start 03/13/17 at 17:30 Morphine Sulfate 2 mg PRN Q2HR PRN IV PAIN; Start 03/13/17 at 17:30; Status Cancel Tramadol HCl (Ultram) 50 mg PRN Q6HRS PRN PO PAIN; Start 03/13/17 at 17:30; Status Cancel Hydralazine HCl (Apresoline) 10 mg PRN Q4HRS PRN IVP ELEVATED BP, SEE COMMENTS Last administered on 03/13/17 20:15; Start 03/13/17 at 17:30 Docusate Sodium (Colace) 100 mg PRN DAILY PRN PO CONSTIPATION; Start 03/13/17 at 17:30 Albuterol/ Ipratropium (Duoneb) 3 ml RTQID NEB Last administered on 03/14/17 11:42; Start 03/13/17 at 20:00 Albuterol Sulfate (Ventolin Neb Soln) 2.5 mg PRN Q2HR PRN NEB SHORTNESS OF BREATH Last administered on 03/14/17 04:51; Start 03/13/17 at 17:30 Guaifenesin (Mucinex) 600 mg BID PO Last administered on 03/14/17 10:11; Start 03/13/17 at 21:00 Methylprednisolone Sodium Succinate (SOLU-Medrol 40MG VIAL) 80 mg TID IV Last administered on 03/14/17 10:11; Start 03/13/17 at 21:00 Famotidine (Pepcid) 20 mg QHS PO Last administered on 03/13/17 21:12; Start at 21:00 Enoxaparin Sodium (Lovenox 40mg Syringe) 40 mg QHS SQ Last administered on 03/13 21:14; Start 03/13/17 at 21:00 Morphine Sulfate 2 mg PRN Q2HRS PRN IV PAIN; Start 03/13/17 at 17:30; Status UNV Tramadol HCl (Ultram) 50 mg PRN Q6HRS PRN PO PAIN; Start 03/13/17 at 17:30; Status UNV Doxycycline Hyclate (Vibra-Tab) 100 mg BID PO Last administered on 03/14/17 10 :10; Start 03/13/17 at 18:00 Fentanyl Citrate (Fentanyl 2ml Vial) 25 mcg PRN Q4HRS PRN IV PAIN; Start at 19:45 Alprazolam (Xanax) 0.25 mg 1X ONCE PO Last administered on 03/13/17 22:27; Start 03/13/17 at 22:30; Stop 03/13/17 at 22:31; Status DC Active Scripts Active Reported Ventolin Hfa Inhaler (Albuterol Sulfate) 18 Gm Hfa.aer.ad 2 Puff INH Q4HRS Albuterol Sulfate Neb Soln (Albuterol Sulfate) 1.25 Mg/3 Ml Vial.neb 1 Vial NEB Q6HRS Vitals/I & O Vital Sign - Last 24 Hours 03/13/17 03/13/17 03/13/17 03/13/17 14:36 15:00 15:02 15:30 Temp 98.7 98.7 Pulse 105 114 111 Resp 28 28 28 B/P (MAP) 178/125 (142) 175/103 (127) 148/88 (108) Pulse Ox 88 96 95 96 O2 Delivery Nasal Cannula Nasal Cannula Nasal Cannula Nasal Cannula O2 Flow Rate 4.0 4.0 4.0 4.0 03/13/17 03/13/17 03/13/17 03/13/17 16:00 16:15 16:19 16:30 Pulse 104 110 Resp 24 24 B/P (MAP) 154/100 (118) 160/99 (119) Pulse Ox 96 95 95 96 O2 Delivery Nasal Cannula Nasal Cannula Nasal Cannula Nasal Cannula O2 Flow Rate 4.0 4.0 4.0 4.0 03/13/17 03/13/17 03/13/17 03/13/17 17:00 17:30 18:00 18:30 Pulse 102 102 102 102 Resp 24 18 18 18 B/P (MAP) 162/92 (115) 157/84 (108) 150/91 (110) 171/86 (114) Pulse Ox 96 96 96 96 O2 Delivery Nasal Cannula Nasal Cannula Nasal Cannula Nasal Cannula O2 Flow Rate 4.0 4.0 4.0 4.0 03/13/17 03/13/17 03/13/17 03/13/17 19:00 19:15 19:30 19:45 Temp 98.2 98.2 Pulse 104 102 104 Resp 24 B/P (MAP) 175/95 (121) 174/98 (123) 149/91 (110) Pulse Ox 95 95 93 O2 Delivery Nasal Cannula Nasal Cannula Nasal Cannula Nasal Cannula O2 Flow Rate 4.0 4.0 4.0 4.0 03/13/17 03/13/17 03/13/17 03/13/17 20:00 20:15 20:15 20:17 Pulse 104 102 102 Resp B/P (MAP) 178/103 (128) 178/100 155/95 (115) Pulse Ox 95 95 93 O2 Delivery Nasal Cannula Nasal Cannula Nasal Cannula O2 Flow Rate 4.0 4.0 4.0 03/13/17 03/13/17 03/13/17 03/14/17 20:30 21:00 23:30 03:45 Temp 97.7 97.7 97.7 97.7 Pulse 110 110 99 92 Resp 20 B/P (MAP) 157/95 (115) 156/91 (112) 109/64 (79) 105/58 (74) Pulse Ox 97 95 98 95 O2 Delivery Nasal Cannula Nasal Cannula Nasal Cannula Nasal Cannula O2 Flow Rate 4.0 4.0 3.0 2.0 03/14/17 03/14/17 03/14/17 03/14/17 04:52 08:00 08:00 08:17 Temp 98.1 98.1 Pulse 94 Resp 18 B/P (MAP) 140/80 (100) Pulse Ox 94 97 94 O2 Delivery Nasal Cannula Nasal Cannula Nasal Cannula Nasal Cannula O2 Flow Rate 2.0 2.0 2.0 2.0 03/14/17 03/14/17 03/14/17 11:17 11:21 11:43 Temp 97.9 97.9 Pulse 101 Resp 18 B/P (MAP) 157/83 (107) Pulse Ox 96 96 O2 Delivery Nasal Cannula Nasal Cannula Nasal Cannula O2 Flow Rate 2.0 2.0 2.0 Intake and Output 03/13/17 03/13/17 03/14/17 15:00 23:00 07:00 Intake Total 1050 ml 1000 ml Output Total 1500 ml 500 ml Balance -450 ml 500 ml CLARK ALMARAZ MD Mar 14, 2017 13:09
[2017-03-14 15:00] VITALS: BP 166/42
--- NOTE | 2017-03-14 18:13 | PDOC2 ---
Pulmonary Consultation Medications Current Medications Sodium Chloride (Normal Saline Flush) 10 ml 1X ONCE IV Last administered on 16:13; Start 03/13/17 at 15:00; Stop 03/13/17 at 15:01; Status DC Sodium Chloride 1,000 ml @ 1,000 mls/hr Q1H IV Last administered on 03/13/17 15:05; Start 03/13/17 at 15:00; Stop 03/13/17 at 15:59; Status DC Albuterol/ Ipratropium (Duoneb) 3 ml 1X ONCE NEB Last administered on 15:01; Start 03/13/17 at 15:00; Stop 03/13/17 at 15:01; Status DC Methylprednisolone Sodium Succinate (SOLU-Medrol 125MG VIAL) 125 mg 1X ONCE IV Last administered on 03/13/17 15:05; Start 03/13/17 at 15:00; Stop 03/13/17 at 15:01; Status DC Albuterol/ Ipratropium (Duoneb) 3 ml 1X ONCE NEB Last administered on 16:13; Start 03/13/17 at 16:00; Stop 03/13/17 at 16:01; Status DC Albuterol/ Ipratropium (Duoneb) 3 ml 1X ONCE NEB Last administered on 16:18; Start 03/13/17 at 16:00; Stop 03/13/17 at 16:01; Status DC Magnesium Sulfate/ Dextrose 50 ml @ 25 mls/hr 1X ONCE IV Last administered on 03/13/17 16:13; Start 03/13/17 at 16:15; Stop 03/13/17 at 18:14; Status DC Acetaminophen (Tylenol) 650 mg PRN Q6HRS PRN PO FEVER; Start 03/13/17 at 17:30 Ondansetron HCl (Zofran) 4 mg PRN Q6HRS PRN IV NAUSEA/VOMITING; Start 03/13/17 at 17:30 Morphine Sulfate 2 mg PRN Q2HR PRN IV PAIN; Start 03/13/17 at 17:30; Status Cancel Tramadol HCl (Ultram) 50 mg PRN Q6HRS PRN PO PAIN; Start 03/13/17 at 17:30; Status Cancel Hydralazine HCl (Apresoline) 10 mg PRN Q4HRS PRN IVP ELEVATED BP, SEE COMMENTS Last administered on 03/13/17 20:15; Start 03/13/17 at 17:30 Docusate Sodium (Colace) 100 mg PRN DAILY PRN PO CONSTIPATION; Start 03/13/17 at 17:30 Albuterol/ Ipratropium (Duoneb) 3 ml RTQID NEB Last administered on 03/14/17 18:01; Start 03/13/17 at 20:00 Albuterol Sulfate (Ventolin Neb Soln) 2.5 mg PRN Q2HR PRN NEB SHORTNESS OF BREATH Last administered on 03/14/17 04:51; Start 03/13/17 at 17:30 Guaifenesin (Mucinex) 600 mg BID PO Last administered on 03/14/17 10:11; Start 03/13/17 at 21:00 Methylprednisolone Sodium Succinate (SOLU-Medrol 40MG VIAL) 80 mg TID IV Last administered on 03/14/17 15:19; Start 03/13/17 at 21:00 Famotidine (Pepcid) 20 mg QHS PO Last administered on 03/13/17 21:12; Start at 21:00 Enoxaparin Sodium (Lovenox 40mg Syringe) 40 mg QHS SQ Last administered on 03/13 21:14; Start 03/13/17 at 21:00 Morphine Sulfate 2 mg PRN Q2HRS PRN IV PAIN; Start 03/13/17 at 17:30; Status UNV Tramadol HCl (Ultram) 50 mg PRN Q6HRS PRN PO PAIN; Start 03/13/17 at 17:30; Status UNV Doxycycline Hyclate (Vibra-Tab) 100 mg BID PO Last administered on 03/14/17 10 :10; Start 03/13/17 at 18:00 Fentanyl Citrate (Fentanyl 2ml Vial) 25 mcg PRN Q4HRS PRN IV PAIN; Start at 19:45 Alprazolam (Xanax) 0.25 mg 1X ONCE PO Last administered on 03/13/17 22:27; Start 03/13/17 at 22:30; Stop 03/13/17 at 22:31; Status DC Active Scripts Active Reported Ventolin Hfa Inhaler (Albuterol Sulfate) 18 Gm Hfa.aer.ad 2 Puff INH Q4HRS Albuterol Sulfate Neb Soln (Albuterol Sulfate) 1.25 Mg/3 Ml Vial.neb 1 Vial NEB Q6HRS Allergies Allergies Coded Allergies Type Severity Reaction Last Updated Verified codeine Allergy Intermediate 03/13/17 Yes Vital Signs Vital Signs Date Time Temp Pulse Resp B/P (MAP) Pulse Ox O2 Delivery O2 Flow Rate FiO2 03/14/17 18:01 94 Room Air 03/14/17 15:00 98.8 73 18 166/42 (83) 98.8 03/14/17 11:43 2.0 Last Labs Laboratory Tests Test 03/13/17 19:24 03/14/17 05:20 Urine Collection Type Void Urine Color Yellow Urine Clarity Clear Urine pH 5.5 Urine Specific [place] 1.010 Urine Protein Negative mg/dL (NEG-TRACE) Urine Glucose (UA) Negative mg/dL (NEG) Urine Ketones (Stick) 15 mg/dL (NEG) Urine Blood Trace (NEG) Urine Nitrite Negative (NEG) Urine Bilirubin Negative (NEG) Urine Urobilinogen Dipstick 0.2 mg/dL (0.2 mg/dL) Urine Leukocyte Esterase Negative (NEG) Urine RBC 0 /HPF (0-2) Urine WBC Occ /HPF (0-4) Urine Squamous Epithelial Cells Occ /LPF Urine Bacteria Few /HPF (0-FEW) Urine Mucus Mod /LPF White Blood Count 11.1 x10^3/uL (4.0-11.0) Red Blood Count 5.26 x10^6/uL (4.30-5.70) Hemoglobin 16.4 g/dL (13.0-17.5) Hematocrit 48.8 % (39.0-53.0) Mean Corpuscular Volume 93 fL (79-100) Mean Corpuscular Hemoglobin 31 pg (25-35) Mean Corpuscular Hemoglobin Concent 34 g/dL (31-37) Red Cell Distribution Width 12.9 % (11.5-14.5) Platelet Count 234 x10^3/uL (140-400) Neutrophils (%) (Auto) 90 % (31-73) Lymphocytes (%) (Auto) 8 % (24-48) Monocytes (%) (Auto) 2 % (0-9) Eosinophils (%) (Auto) 0 % (0-3) Basophils (%) (Auto) 0 % (0-3) Neutrophils # (Auto) 9.9 x10^3uL (1.8-7.7) Lymphocytes # (Auto) 0.9 x10^3/uL (1.0-4.8) Monocytes # (Auto) 0.2 x10^3/uL (0.0-1.1) Eosinophils # (Auto) 0.0 x10^3/uL (0.0-0.7) Basophils # (Auto) 0.0 x10^3/uL (0.0-0.2) Segmented Neutrophils % 92 % (35-66) Band Neutrophils % 4 % (0-9) Lymphocytes % 3 % (24-48) Monocytes % 1 % (0-10) Platelet Estimate Adequate (ADEQUATE) Sodium Level 139 mmol/L (136-145) Potassium Level 3.8 mmol/L (3.5-5.1) Chloride Level 103 mmol/L (98-107) Carbon Dioxide Level 23 mmol/L (21-32) Anion Gap 13 (6-14) Blood Urea Nitrogen 10 mg/dL (8-26) Creatinine 0.8 mg/dL (0.7-1.3) Estimated GFR (Cockcroft-Gault) 105.5 Glucose Level 147 mg/dL (70-99) Calcium Level 10.0 mg/dL (8.5-10.1) Assessment [facility] D/C HOME RX WRITTEN JOE BEAVERS MD Mar 14, 2017 18:13
[2017-03-14] MEDS ORDERED: CIPR500T PO (19:38)
[2017-03-14] MEDS ORDERED: PROAIR HFA8.5 GM INH ×2 (19:38→19:44)
[2017-03-14] MEDS ORDERED: PRED-220 PO (19:41)
--- NOTE | 2017-03-15 00:22 | CONS ---
DATE OF CONSULTATION: 03/14/2017 ATTENDING PHYSICIAN: Andrea Butler M.D. REASON FOR CONSULTATION: The patient is seen in pulmonary consultation at the request of Dr. Butler for possible asthma. HISTORY OF PRESENT ILLNESS: The patient is a 41-year-old who apparently had some asthma type of symptoms when he was younger. He has been smoking most of his adult life 1 to 1-1/2 pack of cigarettes a day. He started having difficulty with increasing shortness of air on 02/26/2017. He quit tobacco approximately 2-3 weeks ago. He has been using his 's albuterol on a regular basis once or twice a day. He has a cough productive of discolored sputum. In the Emergency Room, he had saturations of 88%; he was on 4 liters of oxygen. He now feels better. 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 Denies fever, chills or night sweats. PAST MEDICAL AND PAST SURGICAL HISTORY: Otherwise, unremarkable. FAMILY HISTORY: Hypertension. No asthma. 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 Smoking quit 3 weeks ago. REVIEW OF SYSTEMS: As indicated above; otherwise, a 10-point system was reviewed and negative. PHYSICAL EXAMINATION: VITAL SIGNS: Stable. O2 saturation was greater than 92%, currently on room air. HEENT: Eyes: The sclerae were nonicteric. NECK: Jugular venous distention was not elevated. No lymphadenopathy. CHEST: Full expansion. LUNGS: Adequate airway flow with mild expiratory wheeze. CARDIOVASCULAR: Regular rate and rhythm with S1 and S2; no S3. ABDOMEN: Soft, nontender, nondistended. EXTREMITIES: No clubbing, cyanosis or edema. IMPRESSION: 1. Acute exacerbation of chronic obstructive pulmonary disease. 2. Nonspecific bronchitis. 3. Possible asthma in addition to the chronic obstructive pulmonary disease. 4. Tobacco dependence, in remission. PLAN: The patient will be discharged home. I have written a prescription for prednisone taper, ciprofloxin and ProAir. He will go to my office tomorrow to obtain a combination of steroid inhaler and a LABA. Discontinue tobacco. Follow up in my office as needed. The patient is instructed on using a respirator at work. JOE BEAVERS MD DR: AMNA/sandy JOB#: [id number] / [id number]
== END 2017-03-14 20:50 | disposition home or self-care (01) | DRG 189 ==
LOC: ER 14:36 → 1 WEST ICU 16:59 → 5 SOUTH 03-14 10:53
PROVIDERS: ADMIT Internal Medicine; ATTEND Internal Medicine
DX: J96.01 Acute respiratory failure with hypoxia (principal); J44.1 Chronic obstructive pulmonary disease with (acute) exacerbation; J45.901 Unspecified asthma with (acute) exacerbation; J40 Bronchitis, not specified as acute or chronic; F17.201 Nicotine dependence, unspecified, in remission; K59.00 Constipation, unspecified; Z90.89 Acquired absence of other organs; Z82.49 Family history of ischemic heart disease and other diseases of the circulatory system; Z79.899 Other long term (current) drug therapy; Z88.6 Allergy status to analgesic agent
CPT/HCPCS: 36415; 36600; 71010; 80048; 80053; 81001; 82553; 82805; 83880; 84484; 85007; 85027; 87641; 93005; 94250; 94640; 96361; 96365; 96375; J0360; J1650; J2920; J2930; J7030; J7060; J7613; J7620; 99291-25; A6539